=== PATIENT | female | born 1980 | race American Indian/Alaskan Native ===

== ENCOUNTER 2017-04-29 17:47 | Emergency (ER) | payer SELFPAY ==
[2017-04-29 18:07] VITALS: BP 151/102
[2017-04-29 19:28] LABS: Bilirubin,Urine NEG (Negative); Blood,Urine NEG (Negative); Ketones,Urine NEG (Negative); Leukocyte Esterase,Urine NEG (Negative); Mucus,Urine FEW /HPF; Nitrite,Urine NEG (Negative); Protein,Urine <15 mg/dL mg/dL (Negative); Urobilinogen,Urine < 2.0 mg/dL (<2.0); WBC,Urine < 1.0 /HPF (0.0-6.0)
[2017-04-29 19:42] LABS: Basophils % (Auto) 1.3 % (0.0-1.8); Eosinophils % (Auto) 2.6 % (0.0-4.3); Hemoglobin 9.8 gm/dl (10.1-14.3); Mean Corpuscular HGB Conc 31 % (30-34); Mean Corpuscular Volume 75 fl (79-97); Platelet Count 439 K/mm3 (140-440); Red Cell Distribution Width 18.5 % (13.2-15.2); White Blood Count 12.7 K/mm3 (4.5-11.0)
[2017-04-29 19:43] LABS: Alanine Aminotransferase 20 units/L (7-56); Albumin 4.4 g/dL (3.9-5); Albumin/Globulin Ratio 1.2 %; Alkaline Phosphatase 67 units/L (35-129); Anion Gap 21 mmol/L; BUN/Creatinine Ratio 18.18; Blood Urea Nitrogen 20 mg/dL (7-17); Calcium 9.6 mg/dL (8.4-10.2); Carbon Dioxide 24 mmol/L (22-30); Chloride 98.3 mmol/L (98-107); Glucose 220 mg/dL (65-100); Lipase 131 units/L (13-60); Potassium 4.4 mmol/L (3.6-5.0); Sodium 139 mmol/L (137-145); Total Protein 8.2 g/dL (6.3-8.2)
[2017-04-29 19:56] LABS: Mean Corpuscular Hemoglobin 23 pg (28-32)
[2017-04-29] MEDS ORDERED: ZOFRAN ODT ONE (20:05)
[2017-04-29] MEDS ORDERED: ZOFRAN PO ONE (20:06)
== END 2017-04-29 23:55 | disposition left against medical advice (07) ==
LOC: ED 17:47
DX: Z53.21 Procedure and treatment not carried out due to patient leaving prior to being seen by health care provider (principal)
CPT/HCPCS: 36415; 80053; 81001; 81025; 83690; 85025; Q0162

== ENCOUNTER 2018-02-04 11:26 | Emergency (ER) | payer MEDICAID ==
[2018-02-04 12:59] LABS: Basophils # (Auto) 0.1 K/mm3 (0.0-0.1); Basophils % (Auto) 1.2 % (0.0-1.8); Eosinophils # (Auto) 0.2 K/mm3 (0.0-0.4); Eosinophils % (Auto) 1.5 % (0.0-4.3); Hemoglobin 9.8 gm/dl (10.1-14.3); Lymphocytes # (Auto) 1.8 K/mm3 (1.2-5.4); Lymphocytes % (Auto) 14.9 % (13.4-35.0); Mean Corpuscular HGB Conc 31 % (30-34); Mean Corpuscular Hemoglobin 22 pg (28-32); Mean Corpuscular Volume 72 fl (79-97); Monocytes # (Auto) 0.6 K/mm3 (0.0-0.8); Monocytes % (Auto) 4.8 % (0.0-7.3); Platelet Count 296 K/mm3 (140-440); Red Blood Count 4.47 M/mm3 (3.65-5.03); Red Cell Distribution Width 17.4 % (13.2-15.2)
[2018-02-04 13:28] LABS: Alanine Aminotransferase 15 units/L (7-56); Albumin 4.2 g/dL (3.9-5); BUN/Creatinine Ratio 17; Blood Urea Nitrogen 17 mg/dL (7-17); Calcium 8.9 mg/dL (8.4-10.2); Hemolysis Index 0; Lipase 68 units/L (13-60)
[2018-02-04 16:18] LABS: Bacteria,Urine 1+ /HPF (Negative); Bilirubin,Urine NEG (Negative); Blood,Urine NEG (Negative); Color,Urine Yellow (Yellow); Protein,Urine <15 mg/dL mg/dL (Negative); Urobilinogen,Urine < 2.0 mg/dL (<2.0)
[2018-02-04] MEDS ORDERED: MORPHINE IV ONE (17:53)
[2018-02-04] MEDS ORDERED: ZOFRAN IV ONE (17:53)
[2018-02-04] MEDS ORDERED: MORPHINE ONE (17:54)
[2018-02-04] MEDS ORDERED: NACL 0.9% 500 ML 250 ML IV ONE (18:59)
[2018-02-04] MEDS ORDERED: REGLAN IV ONE (18:59)
[2018-02-04] MEDS ORDERED: SUBLIMAZE IV ONE (18:59)
[2018-02-04] MEDS ORDERED: BENADRYL IV ONE (18:59)
--- NOTE | 2018-02-04 19:06 | Emergency Department Report ---
HPI - General Chief Complaint: Nausea/Vomiting/Diarrhea Time Seen by Provider: 02/04/18 18:23 - HPI HPI: Room 2 The patient is a 37-year-old female presenting with a chief complaint of abdominal pain. The patient states she awakened this morning at 08:30 with epigastric abdominal pain that was burning throbbing and aching in nature. The patient states she has a history of gastroparesis and the pain usually feels like throbbing and sharpness. The patient states her epigastric abdominal pain then became diffuse abdominal pain and now diffuse body pain. Patient denies diarrhea or fever. The patient's pain was initially 10/10 upon arrival to the ED and after being administered morphine her pain is decreased to an 8/10. The patient states she is visiting from [place] Location: [See above] Duration: Progressive since 08:30 Quality: Burning, throbbing, aching Severity: 8-10/10 Modifying factors: [see above] Context: [see above] Mode of transportation: [not driving] ED Past Medical Hx - Past Medical History Hx Hypertension: Yes Hx CVA: Yes (residual left side weakness) Hx Congestive Heart Failure: Yes Hx Diabetes: Yes (IDDM) Hx Asthma: Yes Additional medical history: pituitary tumor, anemia, sleep apnea - Surgical History Hx Internal Defibrillator: Yes (Cardiomyopathy, EF 55-60) Additional Surgical History: partial pit removal, D & C, tonsils - Family History Family history: no significant - Social History Smoking Status: Current Every Day Smoker (1/2 pack per day) Substance Use Type: None (denies illicit drug use) - Medications Home Medications: Home Medications Medication Instructions Recorded Confirmed Last Taken Type Ferrous Sulfate [Feosol 325 MG tab] 325 mg PO BID #60 tablet 05/22/17 Unknown Rx Oxycodone HCl/Acetaminophen 1 each PO Q6HR PRN #12 tablet 05/22/17 Unknown Rx [Percocet 10/325 mg] Pantoprazole [Protonix TAB] 40 mg PO QDAY #30 tablet 05/22/17 Unknown Rx Promethazine HCl [Phenergan SUPPOS] 25 mg RC Q8H PRN #10 supp.rect 02/04/18 Unknown Rx Promethazine [Phenergan TAB] 25 mg PO Q6HR PRN #20 tab 02/04/18 Unknown Rx oxyCODONE /ACETAMINOPHEN [Percocet 1 - 2 tab PO Q6HR PRN #14 tablet 02/04/18 Unknown Rx 5/325] ED Review of Systems ROS: Stated complaint: GASTROPARISIS/BODY ACHE Other details as noted in HPI Constitutional: denies: fever Gastrointestinal: abdominal pain, nausea, vomiting. denies: diarrhea Physical Exam - Physical Exam Vital Signs: Vital Signs 02/04/18 02/04/18 02/04/18 11:54 15:24 15:41 Temperature 98.5 F 98.1 F 98.3 F Pulse Rate 96 H 97 H 97 H Respiratory 22 18 14 Rate Blood Pressure 175/96 Blood Pressure 151/89 151/99 [Right] O2 Sat by Pulse 100 97 97 Oximetry 02/04/18 17:47 Temperature Pulse Rate 92 H Respiratory 23 Rate Blood Pressure Blood Pressure 183/144 [Right] O2 Sat by Pulse 100 Oximetry Physical Exam: GENERAL: The patient is well-developed well-nourished female lying on stretcher not appearing to be in mild discomfort HEENT: Normocephalic. Atraumatic. Extraocular motions are intact. Patient has moist mucous membranes. NECK: Supple. Trachea midline CHEST/LUNGS: Clear to auscultation. There is no respiratory distress noted. HEART/CARDIOVASCULAR: Regular. There is no tachycardia. There is no gallop rub or murmur. ABDOMEN: Abdomen is soft, with diffuse tenderness to palpation. Patient has normal bowel sounds. There is no abdominal distention. SKIN: There is no rash. There is no edema. There is no diaphoresis. NEURO: The patient is awake, alert, and oriented. The patient is cooperative. The patient has normal speech MUSCULOSKELETAL: There is no evidence of acute injury. ED Course Vital Signs 02/04/18 02/04/18 02/04/18 11:54 15:24 15:41 Temperature 98.5 F 98.1 F 98.3 F Pulse Rate 96 H 97 H 97 H Respiratory 22 18 14 Rate Blood Pressure 175/96 Blood Pressure 151/89 151/99 [Right] O2 Sat by Pulse 100 97 97 Oximetry 02/04/18 17:47 Temperature Pulse Rate 92 H Respiratory 23 Rate Blood Pressure Blood Pressure 183/144 [Right] O2 Sat by Pulse 100 Oximetry ED Medical Decision Making - Lab Data Result diagrams: 02/04/18 12:37 02/04/18 12:37 Laboratory Tests 02/04/18 02/04/18 02/04/18 12:04 12:37 12:37 WBC 12.3 H RBC 4.47 Hgb 9.8 L Hct 32.0 MCV 72 L MCH 22 L MCHC 31 RDW 17.4 H Plt Count 296 Lymph % (Auto) 14.9 [place] % (Auto) 4.8 Eos % (Auto) 1.5 Baso % (Auto) 1.2 Lymph # 1.8 [place] # 0.6 Eos # 0.2 Baso # 0.1 Seg Neutrophils % 77.6 H Seg Neutrophils # 9.6 H Sodium 139 Potassium 3.9 Chloride 100.6 Carbon Dioxide 22 Anion Gap 20 BUN 17 Creatinine 1.0 Estimated GFR > 60 BUN/Creatinine Ratio 17 Glucose 382 H POC Glucose 370 H Calcium 8.9 Total Bilirubin < 0.20 AST 17 ALT 15 Alkaline Phosphatase 107 Total Protein 7.6 Albumin 4.2 Albumin/Globulin Ratio 1.2 Lipase 68 H HCG, Qual Urine Color Urine Turbidity Urine pH Ur Specific [place] Urine Protein Urine Glucose (UA) Urine Ketones Urine Blood Urine Nitrite Urine Bilirubin Urine Urobilinogen Ur Leukocyte Esterase Urine WBC (Auto) Urine RBC (Auto) U Epithel Cells (Auto) Urine Bacteria (Auto) 02/04/18 02/04/18 12:37 15:24 WBC RBC Hgb Hct MCV MCH MCHC RDW Plt Count Lymph % (Auto) [place] % (Auto) Eos % (Auto) Baso % (Auto) Lymph # [place] # Eos # Baso # Seg Neutrophils % Seg Neutrophils # Sodium Potassium Chloride Carbon Dioxide Anion Gap BUN Creatinine Estimated GFR BUN/Creatinine Ratio Glucose POC Glucose Calcium Total Bilirubin AST ALT Alkaline Phosphatase Total Protein Albumin Albumin/Globulin Ratio Lipase HCG, Qual Negative Urine Color Yellow Urine Turbidity Clear Urine pH 5.0 Ur Specific [place] 1.021 Urine Protein <15 mg/dl Urine Glucose (UA) >=500 Urine Ketones Tr Urine Blood Neg Urine Nitrite Neg Urine Bilirubin Neg Urine Urobilinogen < 2.0 Ur Leukocyte Esterase Tr Urine WBC (Auto) 3.0 Urine RBC (Auto) 2.0 U Epithel Cells (Auto) 3.0 Urine Bacteria (Auto) 1+ - Radiology Data Radiology results: report reviewed (CT abdomen and pelvis), image reviewed (CT abdomen and pelvis) CT abdomen and pelvis (read by radiologist)-prior cholecystectomy. Nonspecific groundglass density seen in the lung bases without dense consolidations or effusions or masses. No acute abnormalities are identified. - Differential Diagnosis gastroparesis, pancreatitis, gastritis, partial small bowel obstruction Critical care attestation.: If time is entered above; I have spent that time in minutes in the direct care of this critically ill patient, excluding procedure time. ED Disposition Clinical Impression: Abdominal pain, Nausea & vomiting Disposition: TO HOME OR SELFCARE Is pt being admited?: No Does the pt Need Aspirin: No Condition: Stable Instructions: Abdominal Pain (ED) Additional Instructions: Return to the emergency department immediately should you develop worsening symptoms, fever, inability to tolerate food or liquid or any other concerns. Prescriptions: oxyCODONE /ACETAMINOPHEN [Percocet 5/325] 1 - 2 tab PO Q6HR PRN #14 tablet PRN Reason: Pain Promethazine [Phenergan TAB] 25 mg PO Q6HR PRN #20 tab PRN Reason: Nausea Promethazine HCl [Phenergan SUPPOS] 25 mg RC Q8H PRN #10 supp.rect PRN Reason: Vomiting Referrals: ANTONIETTA BLANCO MD [Staff Physician] - 3-5 Days (Dr. Blanco is a [facility]. Please follow-up with him or your [facility] for further evaluation) Time of Disposition: 20:59
[2018-02-04 20:38] VITALS: BP 112/62
--- NOTE | 2018-02-06 14:28 | Cat Scan Report ---
FINAL REPORT PROCEDURE: CT ABDOMEN PELVIS W CON TECHNIQUE: Computerized axial tomography of the abdomen and pelvis was performed after the IV injection of iodinated nonionic contrast. HISTORY: diffuse abdominal pain COMPARISON: No prior studies are available for comparison. FINDINGS: Lower Lung [place]: Cardiac leads are visualized in the right side heart. Nonspecific ground-glass densities are present in lung bases. No dense consolidations effusions are seen. Upper Abdomen: Gallbladder is surgically absent. The liver, the adrenal glands, the pancreas and spleen are unremarkable. Kidneys, Ureters and Urinary bladder: No abnormalities are seen. Calcifications are seen in the lower pelvis which appear to represent phleboliths. Retroperitoneum: Abdominal aorta appears normal. Nonspecific subcentimeter lymph nodes are seen in the retroperitoneum. No pathologically enlarged lymph nodes are identified. Bowel: No abnormalities are identified. There is no evidence of bowel obstruction or ascites. There is no free intraperitoneal gas. Normal-appearing appendix is seen in the right lower quadrant. Reproductive organs: Uterus is mildly deviated to the right of midline otherwise is unremarkable. No adnexal masses are seen. Other: No acute bony abnormalities are identified. IMPRESSION: Prior cholecystectomy. Nonspecific ground-glass densities seen in the lung bases without dense consolidations effusions or masses. No acute abnormalities are identified.
== END 2018-02-04 21:20 | disposition home or self-care (01) ==
LOC: ED 11:26
DX: R10.84 Generalized abdominal pain (principal); R11.2 Nausea with vomiting, unspecified; I10 Essential (primary) hypertension; I50.9 Heart failure, unspecified; E10.9 Type 1 diabetes mellitus without complications; J45.909 Unspecified asthma, uncomplicated; D64.9 Anemia, unspecified; F17.210 Nicotine dependence, cigarettes, uncomplicated
CPT/HCPCS: 36415; 74177; 80053; 81001; 82962; 83690; 84703; 85025; 96361; 96374; 96375; 99284; J1200; J2270; J2405; J2765; J3010; J7040; Q9967